=== PATIENT | male | born 1970 | race Caucasian/White ===

== ENCOUNTER → 2016-11-01 | Day surgery (SDC) | payer BC ==
[~2016-11-01] VITALS: Ht 180.3 cm; Wt 108.8 kg
[~2016-11-01] MED LIST: FLEXERIL10 MG PO; NORCO 5-325 TA1 EACH PO
--- NOTE | ~2016-11-01 | OR ---
PATIENT'S NAME: KLARISSA HARRELL [facility] AGE: 46 Y [address] ROOM: [place] [address] [place] [facility] [place]: 11[place]01/2016 OR/Procedure Report DISCHARGE DATE: FAMILY PHYSICIAN: Jordin Zamudio MD ATTENDING PHYSICIAN: Kei Villegas SURGEON: Kei Villegas MD DIGITAL MARKETING CONSULTANT: DATE OF PROCEDURE: 11/01/2016 PREOPERATIVE DIAGNOSIS: Left L4-L5 disc herniation. POSTOPERATIVE DIAGNOSIS: Left L4-L5 disc herniation. OPERATION PROPOSED AND PERFORMED: 1. Left L4-L5 microdiscectomy using the minimally invasive approach. 2. Microscope. 3. Fluoroscopy with interpretation. DESCRIPTION OF PROCEDURE: Under general anesthesia, the patient was positioned prone. The back was prepped and draped in the usual fashion. A spinal needle was placed just one fingerbreadth to the left of the midline, directly opposite the L4-L5 disc space. This position was ascertained by using fluoroscopy. Next, the position of this spinal needle was marked on the skin, and the spinal needle was removed. The wound was prepped and draped in the usual manner and a 2 cm incision was then carried out centered on the entrance of the spinal needle and skin. Next, the K-wire was then passed through this spot to rest on the inferior part of lamina of L4. Muscle dilators were then sequentially passed over the K-wire and each came to rest on the inferior part of the lamina of L4. Finally, the 6 cm tubular retractor was then passed over the muscle dilators, and it also came to rest on the inferior part of lamina of L4, and with each passage, we confirmed the position fluoroscopically. Finally, the tubular retractor was attached to the flexible arm of the flexible arm retractor. The muscle dilators were removed. The C-arm was removed. Microscope was brought in. With aid of the microscope, we removed the soft tissue from the inferior part of the lamina of L4. We then went ahead and drilled off the inferior part of lamina of L4. The canal was quite stenosed and the lamina was literally vertical. We went ahead and removed the medial portion of the L4-L5 facet on the left side and we were able to identify the proximal portion of the L5 nerve root. After that had been done, we were sure it was lateral enough or lateral to the dura. We then cauterized the epidural vessels and incised them, dissected the dura as well as the nerve root from the herniating disc which was causing significant compression of the nerve root. Next, after this was done, we made an incision into the annulus primarily because all we could see initially was the herniating disc and used the pituitary rongeurs to remove the herniating disc piecemeal. When we PATIENT'S NAME: KLARISSA HARRELL [facility] AGE: 46 Y [address] ROOM: [place] [address] [place] [facility] [place]: 11/01/2016 OR/Procedure Report DISCHARGE DATE: FAMILY PHYSICIAN: Jordin Zamudio MD ATTENDING PHYSICIAN: Kei Villegas thought we had finished, I then went ahead and explored the spinal canal, explored it along the nerve root. There was big fragment of disc material that was extruded that we were able to retrieve, and on retrieving this, this relieved the tension that was on the nerve root. As a result of this, we explored the canal and the foramen multiple times until we could not find any other fragments. We pushed down onto the disc space with the nerve root retractor, and there was no fragment coming out. The wound was then thoroughly irrigated with bacitracin irrigation and tubular retractor was removed. The wound was closed in layers in the usual fashion in subcutaneous layer, and then the skin edges were brought together with subcuticular stitches and Steri-Strips. The patient tolerated the procedure well and was taken to the outpatient waiting area. MD KYLAH MALLOY/donaldol /[id number] d: 11/01/16 1733 t: 11/05/16 1206, OPERATIVE SUMMARY
== END | disposition disaster alternative care site (69) ==
LOC: GPOC 10-31 13:00 → GSDC 06:48
PROC: 0SB20ZZ Excision of Lumbar Vertebral Disc, Open Approach (ICD-10-PCS; principal; 2016-11-01)
PROC: 01NB0ZZ Release Lumbar Nerve, Open Approach (ICD-10-PCS; 2016-11-01)
DX: M51.26 Other intervertebral disc displacement, lumbar region (principal); M48.06 Spinal stenosis, lumbar region
CPT/HCPCS: J0690; J1100; J2250; J2405; J3010; J3370; J7120